=== PATIENT | male | born 1960 | race Hispanic/Latino ===

== ENCOUNTER 2024-04-16 06:16 | Day surgery (SDC) | payer OTHER ==
[2024-04-13 12:40] LABS: BASOPHILS # (AUTO) 0.03 K/uL (0.00-0.20); BASOPHILS % (AUTO) 0.4 % (0.0-5.0); EOSINOPHILS # (AUTO) 0.22 K/uL (0.00-0.70); EOSINOPHILS % (AUTO) 3.2 % (0.0-8.0); HEMATOCRIT 33.5 % (42-54); IMMATURE GRANULOCYTE ABSOLUTE 0.02 K/uL (0-1); LYMPHOCYTES # (AUTO) 0.9 K/uL (1.0-4.8); LYMPHOCYTES % (AUTO) 13.9 % (21.0-51.0); MEAN CORPUSCULAR HEMOGLOBIN 32.1 pg (27.0-33.0); MEAN CORPUSCULAR HGB CONC 32.8 g/dL (32.0-36.0); MEAN CORPUSCULAR VOLUME 97.7 fL (79-99); MONOCYTES # (AUTO) 0.8 K/uL (0.1-1.0); MONOCYTES % (AUTO) 11.5 % (3.0-13.0); NEUTROPHILS # (AUTO) 4.8 K/uL (1.8-7.7); NEUTROPHILS % (AUTO) 70.7 % (40.0-77.0); PLATELET COUNT (AUTO) 223 K/uL (130-400); RED BLOOD CELL COUNT(AUTO) 3.43 MIL/uL (4.50-6.20); RED CELL DISTRIBUTION WIDTH 13.7 % (11.0-15.5); WHITE BLOOD COUNT (AUTO) 6.8 K/uL (4.8-10.8)
--- NOTE | 2024-04-13 12:40 | EKG ---
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
[2024-04-13 12:51] LABS: INR 1.08 (0.85-1.15); PROTHROMBIN TIME 11.6 SEC (9.6-11.6)
[2024-04-13 12:56] LABS: ALBUMIN 3.7 g/dL (3.5-5.0); BILIRUBIN,TOTAL 0.3 mg/dL (0.2-1.0); CREATININE 5.3 mg/dL (0.5-1.3); POTASSIUM 5.1 mmol/L (3.5-5.1); TOTAL PROTEIN, SERUM 7.4 g/dL (6.0-8.3)
[2024-04-13 13:37] VITALS: BP 215/83; PULSE 68; RESP 17; TEMP 97.5
--- NOTE | 2024-04-13 16:03 | HMCIMG ---
CHEST 1VW REASON: PRE OP COMPARISON: None. FINDINGS: Single view of the chest was obtained. Lungs are clear. Heart size is normal. There is no pulmonary vascular congestion. Mediastinum and bony thorax appear unremarkable. There is a dialysis catheter in place on the right. IMPRESSION: 1. No acute process seen in the chest.
--- NOTE | 2024-04-15 14:21 | NUR ---
VERIFIED CALLED DR ESCOBAR/MAURICIO AND RECEIVED ORDERS FOR TYPE AND SCREEN. ALSO NO VENOGRAMS DONE PER MAURICIO.
[2024-04-16] VITALS (15 sets, daily range): BP systolic 154–211; BP diastolic 60–92; PULSE 58–86; RESP 15–17; TEMP 97.3–97.6
[~2024-04-16] VITALS: Ht 165.1 cm; Wt 63.0 kg
[~2024-04-16 06:16] MED LIST: ATOR20TA65 PO; CLOP75TA32 PO; ESCI-8 PO; HYDR50TA36 PO; LEVO50CA4 PO; LOSA100T59 PO; METO-391 PO; NIFE-40 PO; SEVE0.8P3 PO; VELTASSA PO
[2024-04-16] MEDS: 0.9% NACL 500ML IV.SOLN 500 ML IV ONE (07:12)
[2024-04-16] MEDS ORDERED: ondanSETRON 4MG INJ ONE (07:17)
[2024-04-16] MEDS ORDERED: SUCCINYLCHOLINE CHLORIDE 20 MG/ML 10 ML VIAL ONE (07:17)
[2024-04-16] MEDS ORDERED: NEOSTIGMINE METHYLSULFATE 1MG/ML IV ONE (07:17)
[2024-04-16] MEDS ORDERED: GLYCOPYRROLATE 0.2 MG/ML 5 ML VIAL ONE (07:17)
[2024-04-16] MEDS ORDERED: LIDOCAINE PF 100MG/5ML (2%) SYRINGE 5ML ONE (07:17)
[2024-04-16] MEDS ORDERED: dexaMETHasone SOD PHOSPHATE 10MG/ML 1ML VIAL ONE (07:17)
[2024-04-16] MEDS ORDERED: FENTanyl CITRate PF 50 MCG/1 ML 2ML VIAL ONE (07:18)
[2024-04-16] MEDS ORDERED: rocuRONium bROMide 10MG/1ML 5ML VL ONE (07:18)
[2024-04-16] MEDS ORDERED: proPOFol 10 MG/ML 20ML VIAL IV ONE (07:18)
[2024-04-16] MEDS ORDERED: MIDAZOLAM HCL 1 MG/ML 2ML VIAL ONE (07:18)
[2024-04-16 07:20] LABS: CREATININE 4.2 mg/dL (0.5-1.3); POTASSIUM 4.3 mmol/L (3.5-5.1)
[2024-04-16] MEDS ORDERED: phenylEPHRINE HCL 10 MG/ML 1ML VIAL IV ONE (07:26)
[2024-04-16] MEDS ORDERED: ePHEDrine SULFate 50 MG/ML AMPULE ONE (07:29)
[2024-04-16] MEDS ORDERED: ketaMINE 50MG/ML SYRINGE 50 MG/ML DISP.SYRIN ONE (07:35)
[2024-04-16] MEDS ORDERED: ALBUMIN (HUMAN) 5% 250 ML IV ONE (07:35)
[2024-04-16] MEDS ORDERED: HEParin-NS 1,000 UNIT/500 ML 500 ML IV ONE (07:38)
--- NOTE | 2024-04-16 07:43 | NUR ---
B/P DR ELIZONDO NOTIFIED, NIFEDIPINE 30MG 1 TAB AND APRESOLINE 50MG 1 TAB GIVEN ORDERED. WILL CONTINUE TO MONITOR B\P.
[2024-04-16] MEDS ORDERED: hydrALAZine 25MG TABLET PO ONE (08:00)
[2024-04-16] MEDS ORDERED: nifeDIPine ER 30 MG TAB PO ONE (08:00)
[2024-04-16] MEDS ORDERED: ceFAZolin SODIUM 2 GM VIAL ONE (08:05)
[2024-04-16] MEDS ORDERED: FAMOTIDINE 20MG VIAL IV ONE (08:23)
[2024-04-16] MEDS ORDERED: SUGAMMADEX SODIUM 200 MG/2 ML VIAL IV ONE (08:23)
[2024-04-16] MEDS: ceFAZolin SODIUM 2 GM VIAL IVPB ONE (08:41)
--- NOTE | 2024-04-16 12:59 | OP ---
Operative Note: DATE OF PROCEDURE: 04/16/24 SURGEON: EROS ESCOBAR MD [employer] B[employer] REPAIRER: [] PREOPERATIVE DIAGNOSIS: End-stage renal disease POSTOPERATIVE DIAGNOSIS: End-stage renal disease PROCEDURE: Left upper extremity brachiocephalic fistula creation INDICATIONS: Patient needs access for dialysis ESTIMATED BLOOD LOSS: 10cc Devices left in place: None Anesthesia: General endotracheal DESCRIPTION OF PROCEDURE: Patient is brought to the operating room placed on the operating table in a supine position. Once general endotracheal anesthesia is achieved patient's left upper extremity up to the axilla is prepped and draped in sterile fashion. Using ultrasound we identified the cephalic vein and confirmed that it was adequate for fistula creation. We then proceeded to create a transverse incision at the antecubital fossa and dissected down through the skin and subcutaneous tissue to expose the cephalic vein vein. We exposed that for a length of about 6 cm. We then proceeded to expose the brachial artery for a length of about 4 cm and obtained proximal and distal control. We then asked anesthesia to give 5000 units of heparin. I then proceeded to clamp the cephalic vein proximally and distally divided it at the level of the elbow. And suture ligated the distal and end. We then proceeded to to dilate the vein with heparinized saline and ensured that there were no leaks from all the branches were clipped or sutured. I then clamped the brachial artery proximally and distally. I then proceeded to create a end-to-side anastomosis between the brachial artery and the cephalic vein at the antecubital fossa with 6-0 Prolene. I then opened up the clamp to the vein first and that there to be backflow. And then proceeded to open the proximal clamp on the artery to flush out the anastomosis and then open the distal clamp. I then proceeded to suture the anastomosis. We ensured with a Doppler that we had a strong palmar arch pulse at the left hand and ulnar and radial pulses as well. We had a good thrill throughout the fistula. We then close the skin incision in 2 layers with subcutaneous tissue being closed with 3-0 Vicryl in running fashion and the skin was closed with 4-0 Monocryl in running fashion. Dermabond was applied over top and skin dressings were applied over top patient tolerated the procedure well all counts were correct x2 at the end of the procedure. EROS ESCOBAR MD Apr 16, 2024 12:59
== END 2024-04-16 11:15 | disposition home or self-care (01) ==
LOC: DAH 06:16
PROVIDERS: ATTEND Student in an Organized Health Care Education/Training Program
DX: I12.0 Hypertensive chronic kidney disease with stage 5 chronic kidney disease or end stage renal disease (principal); N18.6 End stage renal disease; E78.00 Pure hypercholesterolemia, unspecified; Z96.649 Presence of unspecified artificial hip joint; Z87.891 Personal history of nicotine dependence; Z99.2 Dependence on renal dialysis; Z79.01 Long term (current) use of anticoagulants; Z79.899 Other long term (current) drug therapy
CPT/HCPCS: 80053; 85025; 85610; 85730; 36415 ×2; 71045; 93005; 36821; 80048; 86850; 86900; 86901; A6260; A4663 ×2; P9045; J7040; J3490 ×5; J3010; J1100; J0330; J2003; J2250; J2704; J2405; J2710; J1644; J2371; J0690 ×2; A4649 ×3; C1713 ×2; A4930; A4215 ×2; A4223; A4222; A4221 ×2; A4600 ×2